=== PATIENT | female | born 1995 | race Hispanic/Latino ===

== ENCOUNTER 2019-08-06 04:12 | Inpatient (IN) | payer MEDICAID ==
[~2019-08-06] VITALS: Ht 152.4 cm; Wt 81.2 kg
[~2019-08-06 04:12] MED LIST: IBUP-2088 PO
[2019-08-06] MEDS ORDERED: LACTATED RINGERS 1000ML 1,000 ML IV PRN ×2 (04:25→04:59)
[2019-08-06 04:47] LABS: APPEARANCE,URINE Cloudy (CLEAR); BILIRUBIN,URINE Negative (NEGATIVE); COLOR,URINE Yellow (YELLOW); GLUCOSE, URINE (UA) Negative (NEGATIVE); KETONES,URINE Negative (NEGATIVE); LEUKOCYTE ESTERASE ,URINE Large (NEGATIVE); NITRATE,URINE Negative (NEGATIVE); OCCULT BLOOD,URINE Negative (NEGATIVE); PH,URINE 7.5 (5.0-8.0); PROTEIN,URINE Trace mg/dL (NEGATIVE)
[2019-08-06 05:02] LABS: BACTERIA,URINE Few /HPF (None Seen); MUCUS,URINE Few LPF (None Seen); RBC,URINE 0-1 /HPF (0-1); SQUAMOUS EPITHELIAL CELL,UR Moderate /HPF (0-2)
[2019-08-06 05:20] LABS: MEAN CORPUSCULAR HGB CONC 31.5 g/dL (32.0-36.0); MEAN CORPUSCULAR VOLUME 79.3 fL (80-100); PLATELET COUNT (AUTO) 295 K/uL (130-400); RED BLOOD CELL COUNT(AUTO) 4.16 MIL/uL (4.00-5.50); RED CELL DISTRIBUTION WIDTH 15.4 % (11.0-15.5); WHITE BLOOD COUNT (AUTO) 13.3 K/uL (4.8-10.8)
[2019-08-06] MEDS ORDERED: AMPICILLIN 2GM+NS 100ML 100 ML IV SCH (05:30)
[2019-08-06 06:00] LABS: AMPHET/METH SCREEN,URINE NEGATIVE (NEGATIVE); BARBITURATE SCREEN, URINE NEGATIVE (NEGATIVE); BENZODIAZEPINES SCREEN,URINE NEGATIVE (NEGATIVE); CANNABINOID SCREEN,URINE NEGATIVE (NEGATIVE); COCAINE SCREEN,URINE NEGATIVE (NEGATIVE); OPIATE SCREEN,URINE NEGATIVE (NEGATIVE); PHENCYCLIDINE SCREEN,URINE NEGATIVE (NEGATIVE)
[2019-08-06] MEDS ORDERED: OXYTOCIN 10 USP UNITS/ML 20 UNIT in LACTATED RINGERS 1000ML 1,000 ML IV SCH (06:45)
[2019-08-06] MEDS ORDERED: OXYTOCIN-LR 20 UNITS/1000 ML 1,000 ML IV ONE (06:52)
[2019-08-06] MEDS ORDERED: EPHEDRINE SULFATE 50 MG/ML AMPULE IVP PRN (07:15)
[2019-08-06] MEDS ORDERED: ROPIVACAINE 0.2% 100ML VIAL 100 ML EP SCH (07:15)
[2019-08-06] MEDS ORDERED: PROMETHAZINE HCL 25 MG/ML 1ML AMPULE IM SCH (07:15)
[2019-08-06] MEDS ORDERED: MEPERIDINE-PF 50 MG/ML SYG IVP SCH (07:15)
[2019-08-06] MEDS ORDERED: LACTATED RINGERS 500 ML 500 ML IV PRN (07:15)
[2019-08-06] MEDS ORDERED: NALOXONE HCL 0.4 MG/1 ML ML IV PRN (07:15)
[2019-08-06] MEDS ORDERED: OXYTOCIN-LR 20 UNITS/1000 ML 1,000 ML IV SCH ×2 (07:30→08:15)
[2019-08-06] MEDS ORDERED: LIDOCAINE HCL 1% 20 ML VIAL INJ PRN (07:45)
[2019-08-06] MEDS ORDERED: ACETAMINOPHEN-CODEINE 300/30MG TAB PO PRN (08:15)
[2019-08-06] MEDS ORDERED: LANOLIN 30GM OINTMENT TP PRN (08:15)
[2019-08-06] MEDS ORDERED: BENZOCAINE/LANOLIN/ALOE VERA 60 ML AEROSOL TP PRN (08:15)
[2019-08-06] MEDS ORDERED: MEASLES/MUMPS/RUBELLA VACCINE, LIVE 0.5 ML/VIAL SQ PRN (08:15)
[2019-08-06] MEDS ORDERED: ACETAMINOPHEN 325 MG TAB PO PRN (08:15)
[2019-08-06] MEDS ORDERED: DIPH,PERTUSS(ACELL),TET VAC/PF 0.5 ML VIAL IM PRN (08:15)
[2019-08-06] MEDS ORDERED: WITCH HAZEL 1 PAD TP PRN (08:15)
[2019-08-06] MEDS ORDERED: AMPICILLIN 1GM+NS 50ML 50 ML IV SCH (09:30)
[2019-08-06 09:48] VITALS: BP 112/69
[2019-08-06] MEDS: DOCUSATE SODIUM 100 MG CAP PO SCH ×2 (09:53→20:24)
[2019-08-06] MEDS: IBUPROFEN 600 MG TABLET PO PRN (09:54)
[2019-08-06 10:30] LABS: RAPID PLASMA REAGIN NONREACTIVE (NONREACTIVE)
[2019-08-06 11:02] VITALS: BP 110/69
[2019-08-06] MEDS ORDERED: PREN1COM14 PO (16:25)
[2019-08-06 16:28] VITALS: BP 111/73
[2019-08-06 19:31] VITALS: BP 108/66
[2019-08-06 23:51] VITALS: BP 103/68
[2019-08-07 04:54] VITALS: BP 96/63
[2019-08-07 05:13] LABS: HEMATOCRIT 27.9 % (36-48); MEAN CORPUSCULAR HEMOGLOBIN 25.8 pg (27.0-33.0); MEAN CORPUSCULAR HGB CONC 31.5 g/dL (32.0-36.0); MEAN CORPUSCULAR VOLUME 81.8 fL (80-100); RED BLOOD CELL COUNT(AUTO) 3.41 MIL/uL (4.00-5.50); RED CELL DISTRIBUTION WIDTH 15.6 % (11.0-15.5); WHITE BLOOD COUNT (AUTO) 10.3 K/uL (4.8-10.8)
[2019-08-07 07:14] LABS: HEPATITIS Bs ANTIGEN SCREEN P Negative (Negative)
[2019-08-07 07:24] VITALS: BP 104/80
[2019-08-07] MEDS: DOCUSATE SODIUM 100 MG CAP PO SCH (08:50)
[2019-08-07] MEDS: IBUPROFEN 600 MG TABLET PO PRN (08:51)
[2019-08-07 11:19] VITALS: BP 106/68
--- NOTE | 2019-08-07 11:25 | NUR ---
DR. GREGORY CALLED RE PATIENT STATUS AND ORDER RECEIVED FOR DISCHARGE.
--- NOTE | 2019-08-07 13:00 | NUR ---
PATIENT WAS GIVEN DISCHARGE INSTRUCTIONS AND VERBALIZED UNDERSTANDING INSTRUCTIONS GIVEN. PATIENT REMAINS STABLE AND DENIES PAIN. MEDICAL RECORDS CALLED AND MADE AWARE OF DISCHARGE SO SHE COULD MEET BABY'S FATHER TO PROVIDE ID FOR BABY'S CERTIFICATE.
--- NOTE | 2019-08-07 13:20 | NUR ---
PATIENT WAS TAKEN VIA W/C TO FAMILY VEHICLE AND WAS DISCHARGED TO SPOUSE IN STABLE CONDITION. PATIENT CARRIED IN ARMS ON DISCHARGE.
== END 2019-08-07 13:20 | disposition home or self-care (01) | DRG 560 ==
LOC: EDH 04:12 → OBSVTOIN 04:23 → LDH 04:23 → WSH 09:47
PROVIDERS: ADMIT Obstetrics & Gynecology; ATTEND Obstetrics & Gynecology
PROC: 10E0XZZ Delivery of Products of Conception, External Approach (ICD-10-PCS; principal; 2019-08-06)
PROC: 0HQ9XZZ Repair Perineum Skin, External Approach (ICD-10-PCS; 2019-08-06)
PROC: 3E0234Z Introduction of Serum, Toxoid and Vaccine into Muscle, Percutaneous Approach (ICD-10-PCS; 2019-08-06)
PROC: 3E0134Z Introduction of Serum, Toxoid and Vaccine into Subcutaneous Tissue, Percutaneous Approach (ICD-10-PCS; 2019-08-06)
PROC: 10907ZC Drainage of Amniotic Fluid, Therapeutic from Products of Conception, Via Natural or Artificial Opening (ICD-10-PCS; 2019-08-06)
DX: O70.0 First degree perineal laceration during delivery (principal); Z37.0 Single live birth; Z23 Encounter for immunization; Z3A.38 38 weeks gestation of pregnancy
CPT/HCPCS: 36415; 80305; 81001; 85027; 86592; 86701; 86850; 86900; 86901; 87088; 87340; 87390; G0378; J0290; J2175; J2550; J2590